=== PATIENT | male | born 1985 | race Caucasian/White ===

== ENCOUNTER 2017-11-23 06:26 | Emergency (ER) | payer BC ==
[2017-11-23] MEDS ORDERED: Ketorolac 60 MG/2 ML SDV IM ONE (06:36)
--- NOTE | 2017-11-23 06:37 | EDM.PDOC ---
ED HPI GENERAL MEDICAL PROBLEM - General Stated Complaint: RIGHT ANKLE PAIN Time Seen by Provider: 11/23/17 06:33 - History of Present Illness INITIAL COMMENTS - FREE TEXT/NARRATIVE: HISTORY AND PHYSICAL: History of present illness: Patient is a 32-year-old male presents with a concern of right ankle pain and recent injury he was seen [facility] and was told neck x-ray was negative he was discharged with ibuprofen he subsequently secured a splint he has not been using crutches concerned about the persistent pain. Review of systems: As per history of present illness and below otherwise all systems reviewed and negative. Past medical history: As per history of present illness and as reviewed below otherwise noncontributory. Surgical history: As per history of present illness and as reviewed below otherwise noncontributory. Social history: No reported history of drug or alcohol abuse. Family history: As per history of present illness and as reviewed below otherwise noncontributory. Physical exam: HEENT: Atraumatic, normocephalic, pupils reactive, negative for conjunctival pallor or scleral icterus, mucous membranes moist, throat clear, neck supple, nontender, trachea midline. Lungs: Clear to auscultation, breath sounds equal bilaterally, chest nontender. Heart: S1S2, regular, negative for clicks, rubs, or JVD. Abdomen: Soft, nondistended, nontender. Negative for masses or hepatosplenomegaly. Negative for costovertebral tenderness. Pelvis: Stable nontender. Genitourinary: Deferred. Rectal: Deferred. Extremities: Right ankle has tenderness over the proximal forefoot dorsal aspect crepitation or point tenderness Achilles tendon is intact Chammas neurovascular is unremarkable Neuro: Awake, alert, oriented. Cranial nerves II through XII unremarkable. Cerebellum unremarkable. Motor and sensory unremarkable throughout. Exam nonfocal. Diagnostics: X-ray right ankle Therapeutics: Crutches Impression: #1 right ankle injury Definitive disposition and diagnosis as appropriate pending reevaluation and review of above. ED ROS GENERAL - Review of Systems Review Of Systems: ROS reveals no pertinent complaints other than HPI. ED EXAM, GENERAL - Physical Exam Exam: See Below (See dictation) Departure - Departure Time of Disposition: 06:35 Disposition: Home, Self-Care 01 Condition: Good Clinical Impression: Ankle injury - Discharge Information Additional Instructions: The following information is given to patients seen in the emergency department who are being discharged to home. This information is to outline your options for follow-up care. We provide all patients seen in our emergency department with a follow-up referral. The need for follow-up, as well as the timing and circumstances, are variable depending upon the specifics of your emergency department visit. If you don't have a primary care physician on staff, we will provide you with a referral. We always advise you to contact your personal physician following an emergency department visit to inform them of the circumstance of the visit and for follow-up with them and/or the need for any referrals to a consulting specialist. The emergency department will also refer you to a specialist when appropriate. This referral assures that you have the opportunity for followup care with a specialist. All of these measure are taken in an effort to provide you with optimal care, which includes your followup. Under all circumstances we always encourage you to contact your private physician who remains a resource for coordinating your care. When calling for followup care, please make the office aware that this follow-up is from your recent emergency room visit. If for any reason you are refused follow-up, please contact the [facility] emergency department at and asked to speak to the emergency department charge nurse. [facility] Professional Building [address] [place] [address], [address] [place] [address] Crutches splint as directed Ultram as prescribed follow-up orthopedic clinic called to schedule appointment return as needed as discussed
--- NOTE | 2017-11-23 15:53 | CR ---
EXAM DATE: 11/23/17 PATIENT'S AGE: 32 Patient: ANIBAL ROBLES Facility: [place], [place] Site . Site : 1985 Study: XRay Extremity Right ANKLE [id number]/23/2018 7:08:07 AM Ordering Physician: Antionette Carmichael Final Report: INDICATION: PAIN IN RIGHT ANKLE, PT STATES FELL ON ICE ON WEDNESDAY INDICATION: Recent fall. TECHNIQUE: Right ankle, three views. COMPARISON: None FINDINGS: Bones: Alignment is normal. No fractures or bone lesions. Joint spaces: Unremarkable. Soft tissues: No radiopaque foreign body or significant soft tissue swelling. IMPRESSION: There is no acute bone abnormality. Right tibiotalar joint is in anatomic alignment. Dictated by Yomi Castillo MD @ 11/23/2017 7:12:25 AM Dictated by: Yomi Castillo MD @ 11/23/2017 07:12:35 (Electronic Signature) Report Signed by Proxy. [facility]IAL HOSPITALAngelo
== END 2017-11-23 07:39 | disposition home or self-care (01) ==
LOC: MW.ED 06:26
DX: S99.911A Unspecified injury of right ankle, initial encounter (principal); X58.XXXA Exposure to other specified factors, initial encounter
CPT/HCPCS: 73610; 96372; 99283; J1885

== ENCOUNTER 2018-02-20 22:15 | Emergency (ER) | payer BC ==
--- NOTE | 2018-02-20 22:46 | EDM.PDOC ---
ED HPI GENERAL MEDICAL PROBLEM - General Chief Complaint: Lower Extremity Injury/Pain Stated Complaint: LT ANKLE Time Seen by Provider: 02/20/18 22:45 Source of Information: Reports: Patient - History of Present Illness INITIAL COMMENTS - FREE TEXT/NARRATIVE: HISTORY AND PHYSICAL: History of present illness: [Patient presents with left great toe pain 6 out of 10 nonradiating denies injury he is wearing a cam boot to protect his toe as he has had previous injury last year and had the CAM boot available no fever nausea vomiting chills sweats Patient recently started on allopurinol ] Review of systems: As per history of present illness and below otherwise all systems reviewed and negative. Past medical history: As per history of present illness and as reviewed below otherwise noncontributory. Surgical history: As per history of present illness and as reviewed below otherwise noncontributory. Social history: No reported history of drug or alcohol abuse. Family history: As per history of present illness and as reviewed below otherwise noncontributory. Physical exam: HEENT: Atraumatic, normocephalic, pupils reactive, negative for conjunctival pallor or scleral icterus, mucous membranes moist, throat clear, neck supple, nontender, trachea midline. Lungs: Clear to auscultation, breath sounds equal bilaterally, chest nontender. Heart: S1S2, regular, negative for clicks, rubs, or JVD. Abdomen: Soft, nondistended, nontender. Negative for masses or hepatosplenomegaly. Negative for costovertebral tenderness. Pelvis: Stable nontender. Genitourinary: Deferred. Rectal: Deferred. Extremities: Atraumatic, negative for cords or calf pain. Neurovascular unremarkable. Neuro: Awake, alert, oriented. Cranial nerves II through XII unremarkable. Cerebellum unremarkable. Motor and sensory unremarkable throughout. Exam nonfocal. Left foot unaffected above the ankle tender over proximal great toe joint mildly reddened no fluctuance no open lesion or bruising Diagnostics: [CBC uric acid Left foot complete ] Therapeutics: [Toradol 60 IM Solu-Medrol 125 mg Stop allopurinol Indomethacin Medrol Dosepak ] Impression: [Acute gout ] Definitive disposition and diagnosis as appropriate pending reevaluation and review of above. left ankle Pain Score (Numeric/FACES): 10 - Related Data Allergies Allergy/AdvReac Type Severity Reaction Status Date / Time No Known Allergies Allergy Verified 11/23/17 06:38 Home Meds: Home Meds Allopurinol [Zyloprim] 1 tab PO DAILY 02/20/18 [History] Insulin Glarg,Human.Rec.Analog [Lantus] 80 units SQ BEDTIME 02/20/18 [History] Insulin Lispro [HumaLOG] ASDIRECTED 02/20/18 [History] Labetalol [Normodyne] 200 mg PO BID 02/20/18 [History] Losartan [Cozaar] 100 mg PO DAILY 02/20/18 [History] Rosuvastatin [Crestor] 1 tab PO BEDTIME 02/20/18 [History] Spironolactone [Aldactone] 1 tab PO DAILY 02/20/18 [History] amLODIPine Besylate [Amlodipine Besylate] 10 mg PO DAILY 02/20/18 [History] Past Medical History HEENT History: Reports: None Cardiovascular History: Reports: Hypertension Respiratory History: Reports: None Gastrointestinal History: Reports: None Genitourinary History: Reports: None Musculoskeletal History: Reports: None Neurological History: Reports: None Psychiatric History: Reports: None Endocrine/Metabolic History: Reports: Diabetes, Type I Dermatologic History: Reports: None - Infectious Disease History Infectious Disease History: Reports: None - Past Surgical History Male Surgical History: Reports: None Social & Family History - Family History Family Medical History: Noncontributory - Tobacco Use Smoking Status *Q: Never Smoker - Recreational Drug Use Recreational Drug Use: No Review of Systems - Review of Systems Review Of Systems: ROS reveals no pertinent complaints other than HPI. ED EXAM, GENERAL - Physical Exam Exam: See Below Course - Vital Signs Last Recorded V/S: Last Vital Signs Temp 97.9 F 02/20/18 22:15 Pulse 84 02/20/18 22:15 Resp 18 02/20/18 22:15 BP 139/85 02/20/18 22:15 Pulse Ox 95 02/20/18 22:15 - Orders/Labs/Meds Orders: Active Orders 24 hr Category Date Time Status Foot Comp Min 3V Lt [CR] Stat Exams 02/20/18 22:45 Taken Ketorolac [Toradol] Med 02/20/18 23:38 Once 60 mg IM ONETIME ONE methylPREDNISolone Sod Succ [Solu-MEDROL] Med 02/20/18 23:38 Once 125 mg IM ONETIME ONE Medication Orders Ketorolac Tromethamine (Toradol) 60 mg IM ONETIME ONE Stop: 02/20/18 23:39 Methylprednisolone Sodium Succinate (Solu-Medrol) 125 mg IM ONETIME ONE Stop: 02/20/18 23:39 Labs: Laboratory Tests 02/20/18 02/20/18 Range/Units 22:50 22:50 WBC 10.43 (4.0-11.0) K/uL RBC 4.84 (4.50-5.90) M/uL Hgb 11.5 L (13.0-17.0) g/dL Hct 33.7 L (38.0-50.0) % MCV 69.6 L (80.0-98.0) fL MCH 23.8 L (27.0-32.0) pg MCHC 34.1 (31.0-37.0) g/dL RDW Std Deviation 33.2 (28.0-62.0) fl RDW Coeff of Alisha 13 (11.0-15.0) % Plt Count 275 (150-400) K/uL MPV 9.20 (7.40-12.00) fL Neut % (Auto) 69.7 (48.0-80.0) % Lymph % (Auto) 20.8 (16.0-40.0) % Andrews % (Auto) 5.2 (0.0-15.0) % Eos % (Auto) 4.0 (0.0-7.0) % Baso % (Auto) 0.3 (0.0-1.5) % Neut # (Auto) 7.3 H (1.4-5.7) K/uL Lymph # (Auto) 2.2 (0.6-2.4) K/uL Andrews # (Auto) 0.5 (0.0-0.8) K/uL Eos # (Auto) 0.4 (0.0-0.7) K/uL Baso # (Auto) 0.0 (0.0-0.1) K/uL Nucleated RBC % 0.0 /100WBC Nucleated RBCs # 0 K/uL Uric Acid 9.8 H (2.6-7.2) mg/dL Meds: Medications Generic Name Dose Route Start Last Admin Trade Name Freq PRN Reason Stop Dose Admin Ketorolac Tromethamine 60 mg 02/20/18 23:38 Toradol IM 02/20/18 23:39 ONETIME ONE Methylprednisolone Sodium Succinate 125 mg 02/20/18 23:38 Solu-Medrol IM 02/20/18 23:39 ONETIME ONE Departure - Departure Time of Disposition: 23:40 Disposition: Home, Self-Care 01 Condition: Good Clinical Impression: Acute gout - Discharge Information Referrals: Karel Castro MD [Primary Care Provider] - Forms: ED Department Discharge Additional Instructions: Stop allopurinol during acute gout Medication as prescribed Follow-up with primary care in 2 weeks sooner as needed The following information is given to patients seen in the emergency department who are being discharged to home. This information is to outline your options for follow-up care. We provide all patients seen in our emergency department with a follow-up referral. The need for follow-up, as well as the timing and circumstances, are variable depending upon the specifics of your emergency department visit. If you don't have a primary care physician on staff, we will provide you with a referral. We always advise you to contact your personal physician following an emergency department visit to inform them of the circumstance of the visit and for follow-up with them and/or the need for any referrals to a consulting specialist. The emergency department will also refer you to a specialist when appropriate. This referral assures that you have the opportunity for follow-up care with a specialist. All of these measure are taken in an effort to provide you with optimal care, which includes your follow-up. Under all circumstances we always encourage you to contact your private physician who remains a resource for coordinating your care. When calling for follow-up care, please make the office aware that this follow-up is from your recent emergency room visit. If for any reason you are refused follow-up, please contact the [facility] emergency department at and asked to speak to the emergency department charge nurse. - My Orders Last 24 Hours: My Active Orders 02/20/18 22:45 Foot Comp Min 3V Lt [CR] Stat 02/20/18 23:38 Ketorolac [Toradol] 60 mg IM ONETIME ONE methylPREDNISolone Sod Succ [Solu-MEDROL] 125 mg IM ONETIME ONE - Assessment/Plan Last 24 Hours: My Active Orders 02/20/18 22:45 Foot Comp Min 3V Lt [CR] Stat 02/20/18 23:38 Ketorolac [Toradol] 60 mg IM ONETIME ONE methylPREDNISolone Sod Succ [Solu-MEDROL] 125 mg IM ONETIME ONE
[2018-02-20] MEDS ORDERED: Ketorolac 60 MG/2 ML SDV IM ONE (23:38)
[2018-02-20] MEDS ORDERED: methylPREDNISolone Sodium Succinate 125 MG/2 ML SDV IM ONE (23:38)
--- NOTE | 2018-02-21 15:35 | CR ---
EXAM DATE: 02/20/18 PATIENT'S AGE: 32 Patient: ANIBAL ROBLES Facility: [place], [place] Site . Site : 1985 Study: XRay Extremity Left [id number]/22/2018 11:21:47 PM Ordering Physician: Doctor Grewal Final Report: INDICATION: Pain TECHNIQUE: Three views left foot COMPARISON: None FINDINGS: Bones: Alignment is normal. No fractures. Dorsal calcaneal spur. Joint spaces: Unremarkable. Soft tissues: Unremarkable. IMPRESSION: Dorsal calcaneal spur otherwise unremarkable left foot. Dictated by Conor Tran MD @ 02/20/2018 11:32:59 PM Dictated by: Conor Tran MD @ 02/20/2018 23:33:07 (Electronic Signature) Report Signed by Proxy. SARATH
== END 2018-02-21 00:10 | disposition home or self-care (01) ==
LOC: MW.ED 22:15
DX: M10.9 Gout, unspecified (principal); I10 Essential (primary) hypertension; E11.9 Type 2 diabetes mellitus without complications; Z79.4 Long term (current) use of insulin; Z79.899 Other long term (current) drug therapy
CPT/HCPCS: 36415; 73630; 84550; 85025; 96372; 99283; J1885; J2930

== ENCOUNTER 2019-08-05 06:10 | Emergency (ER) | payer BC ==
[2019-08-05] MEDS ORDERED: Ketorolac 60 MG/2 ML SDV IM ONE (06:27)
--- NOTE | 2019-08-05 06:32 | EDM.PDOC ---
ED HPI GENERAL MEDICAL PROBLEM - General Chief Complaint: Lower Extremity Injury/Pain Stated Complaint: GOUT IN RT FOOT Time Seen by Provider: 08/05/19 06:18 - History of Present Illness INITIAL COMMENTS - FREE TEXT/NARRATIVE: HISTORY AND PHYSICAL: History of present illness: The patient is a 34-year-old male with a history of insulin requiring diabetes hypertension and hypercholesterolemia who is establishing himself with a primary care doctor in about 1 week and presents with complaints of an acute gout flare in his right ankle last 2 days. He says that last year at this time approximately he had a similar flareup and was here in the ED and tested and was placed on a Medrol pack and Indocin. The patient says that he has been out of multiple of his medications and he says that last year similar happened and he is not sure if coming off of his medications for the last 2 weeks has affected the gout. He has had no trauma to his right ankle and has no other joint pain or systemic complaints. He has no numbness or tingling to his right ankle or foot and he is currently wearing a cam boot as this helps him with the swelling and support. Review of systems: As per history of present illness and below otherwise all systems reviewed and negative. Past medical history: As per history of present illness and as reviewed below otherwise noncontributory. Surgical history: As per history of present illness and as reviewed below otherwise noncontributory. Social history: No reported history of drug or alcohol abuse. Family history: As per history of present illness and as reviewed below otherwise noncontributory. Physical exam: General: Well-developed well-nourished mildly overweight man who is nontoxic and vital signs are noted by me HEENT: Atraumatic, normocephalic, negative for conjunctival pallor or scleral icterus, mucous membranes moist, throat clear, neck supple, nontender, trachea midline. Lungs: Clear to auscultation, breath sounds equal bilaterally, chest nontender. Heart: S1S2, regular rate and rhythm no overt murmurs Abdomen: Soft, nondistended, nontender. NABS. Negative for costovertebral tenderness. Pelvis: Deferred Genitourinary: Deferred. Rectal: Deferred. Extremities: Atraumatic, negative for cords or calf pain. Neurovascular unremarkable. At the right ankle there are bony arthritic changes appreciated and tenderness to palpation at the dorsal foot and anterior aspect of the ankle but there is no joint effusion soft tissue swelling ecchymosis warmth or erythema. The remainder of the foot and proximal leg are intact without tenderness defects or deformities Neuro: Awake, alert, oriented. Cranial nerves II through XII unremarkable. Cerebellum unremarkable. Motor and sensory unremarkable throughout. Exam nonfocal. Diagnostics: [] Therapeutics: Toradol IM The patient said that last time the shot of Solu-Medrol really bumped his sugars so I will deferred doing that at this time and will give him a Medrol Dosepak and Indocin for home. I've instructed him that if his blood sugar start climbing with the low-dose Medrol pack that he can stop that after 2 days. He is also been offered a short-term medication refill of the meds he is out of until he can see Dr. Castro in one week. Impression: Acute gout flareup right ankle Definitive disposition and diagnosis as appropriate pending reevaluation and review of above. 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 Pain Score (Numeric/FACES): 7 - Related Data Allergies Allergy/AdvReac Type Severity Reaction Status Date / Time No Known Allergies Allergy Verified 08/05/19 06:17 Home Meds: Home Meds Allopurinol [Zyloprim] 1 tab PO DAILY 02/20/18 [History] Insulin Glarg,Human.Rec.Analog [Lantus] 80 units SQ BEDTIME 02/20/18 [History] Insulin Lispro [HumaLOG] 1 injection SQ ASDIRECTED 02/20/18 [History] Labetalol [Normodyne] 200 mg PO BID 02/20/18 [History] Losartan [Cozaar] 100 mg PO DAILY 02/20/18 [History] Rosuvastatin [Crestor] 1 tab PO BEDTIME 02/20/18 [History] Spironolactone [Aldactone] 1 tab PO DAILY 02/20/18 [History] amLODIPine Besylate [Amlodipine Besylate] 10 mg PO DAILY 02/20/18 [History] Past Medical History HEENT History: Reports: None Cardiovascular History: Reports: Hypertension Respiratory History: Reports: None Gastrointestinal History: Reports: None Genitourinary History: Reports: None Musculoskeletal History: Reports: None Neurological History: Reports: None Psychiatric History: Reports: None Endocrine/Metabolic History: Reports: Diabetes, Type I 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 Hematologic History: Reports: None Immunologic History: Reports: None Oncologic (Cancer) History: Reports: None Dermatologic History: Reports: None - Infectious Disease History Infectious Disease History: Reports: None - Past Surgical History Head Surgeries/Procedures: Reports: None Male Surgical History: Reports: None Social & Family History - Family History Family Medical History: Noncontributory - Tobacco Use Smoking Status *Q: Never Smoker - Recreational Drug Use Recreational Drug Use: No Review of Systems - Review of Systems Review Of Systems: ROS reveals no pertinent complaints other than HPI. ED EXAM, GENERAL - Physical Exam Exam: See Below (See dictation) Course - Vital Signs Last Recorded V/S: Last Vital Signs Temp 36.1 C 08/05/19 06:18 Pulse 88 08/05/19 06:18 Resp 18 08/05/19 06:18 BP 168/98 H 08/05/19 06:18 Pulse Ox 96 08/05/19 06:18 - Orders/Labs/Meds Orders: Active Orders 24 hr Category Date Time Status Ketorolac [Toradol] Med 08/05/19 06:27 Once 60 mg IM ONETIME ONE Departure - Departure Time of Disposition: 06:30 Disposition: Home, Self-Care 01 Condition: Good Clinical Impression: Gout attack Qualifiers: Gout site: ankle Gout etiology: unspecified cause Laterality: right Qualified Code(s): M10.9 - Gout, unspecified - Discharge Information Referrals: Karel Castro MD [Primary Care Provider] - Additional Instructions: The following information is given to patients seen in the emergency department who are being discharged to home. This information is to outline your options for follow-up care. We provide all patients seen in our emergency department with a follow-up referral. The need for follow-up, as well as the timing and circumstances, are variable depending upon the specifics of your emergency department visit. If you don't have a primary care physician on staff, we will provide you with a referral. We always advise you to contact your personal physician following an emergency department visit to inform them of the circumstance of the visit and for follow-up with them and/or the need for any referrals to a consulting specialist. The emergency department will also refer you to a specialist when appropriate. This referral assures that you have the opportunity for followup care with a specialist. All of these measure are taken in an effort to provide you with optimal care, which includes your followup. Under all circumstances we always encourage you to contact your private physician who remains a resource for coordinating your care. When calling for followup care, please make the office aware that this follow-up is from your recent emergency room visit. If for any reason you are refused follow-up, please contact the [facility] emergency department at and ask to speak to the emergency department charge nurse. [facility] Primary care- Internal Medicine and Family [address] [address] Please keep your appointment with Dr. Castro next week and fill prescriptions you have been given for refills on your medications as well as for the Medrol Dosepak and the Indocin. Ice and elevate the ankle for pain management and return to ER as needed and as discussed. - My Orders Last 24 Hours: My Active Orders 08/05/19 06:27 Ketorolac [Toradol] 60 mg IM ONETIME ONE - Assessment/Plan Last 24 Hours: My Active Orders 08/05/19 06:27 Ketorolac [Toradol] 60 mg IM ONETIME ONE
== END 2019-08-05 07:00 | disposition home or self-care (01) ==
LOC: MW.ED 06:10
DX: M10.9 Gout, unspecified (principal); I10 Essential (primary) hypertension; E10.9 Type 1 diabetes mellitus without complications; Z79.4 Long term (current) use of insulin; Z79.899 Other long term (current) drug therapy
CPT/HCPCS: 96372; 99283; J1885

== ENCOUNTER 2022-07-05 13:32 | Emergency (ER) | payer BC ==
[2022-07-05] MEDS ORDERED: valACYclovir 500 MG Tab PO ONE ×2 (13:46→15:05)
[2022-07-05] MEDS ORDERED: predniSONE 20 MG Tab PO ONE ×2 (13:46→15:04)
[2022-07-05] MEDS ORDERED: valACYclovir 500 MG Tab ONE (14:53)
== END 2022-07-05 15:38 | disposition home or self-care (01) ==
LOC: MW.ED 13:32
DX: G51.0 Bell's palsy (principal); I10 Essential (primary) hypertension; E10.9 Type 1 diabetes mellitus without complications; Z79.899 Other long term (current) drug therapy
CPT/HCPCS: 70450; 99285; A9270